=== PATIENT | male | born 1975 ===

== ENCOUNTER 2018-12-06 17:53 | Emergency (ER) | payer OTHER ==
[~2018-12-06] VITALS: Ht 177.8 cm; Wt 102.0 kg
[2018-12-06] MEDS ORDERED: epiNEPHrine 1 mg/ml inj IM STA (18:06)
[2018-12-06] MEDS ORDERED: methylPREDNISolone sod succ 125mg/2ml vial IV ONE (18:10)
[2018-12-06] MEDS ORDERED: diphenhydrAMINE 50 mg/ml inj IV ONE (18:10)
[2018-12-06] MEDS ORDERED: famotidine/PF 10 mg/ml inj IV ONE (18:10)
[2018-12-06 19:09] VITALS: BP 161/98
[2018-12-06] MEDS ORDERED: PRED20TA PO (19:11)
== END 2018-12-06 19:21 | disposition home or self-care (01) ==
LOC: ER 17:54
DX: R06.02 Shortness of breath (principal); T46.4X5A Adverse effect of angiotensin-converting-enzyme inhibitors, initial encounter; I10 Essential (primary) hypertension; Z79.899 Other long term (current) drug therapy; Y92.89 Other specified places as the place of occurrence of the external cause
CPT/HCPCS: 96372; 96374; 96375; 99283; J0171; J1200; J2930; J3490

== ENCOUNTER 2020-08-01 15:15 | Emergency (ER) | payer SELFPAY ==
[~2020-08-01] VITALS: Ht 180.3 cm; Wt 106.6 kg
--- NOTE | 2020-08-01 16:10 | NUR ---
PT BROUGHT BACK TO BED 5
--- NOTE | 2020-08-01 16:25 | NUR ---
PROVIDER ZEINAB CROWDER AT BEDSIDE WITH ULTRASOUND PERFORMING FAST EXAM
[2020-08-01] MEDS ORDERED: morphine 4 MG/ML inj SYRINge IV ONE (16:40)
--- NOTE | 2020-08-01 16:40 | NUR ---
REPORT FROM ZEINAB CROWDER, PTS FAST EXAM WAS NEGATIVE.
[2020-08-01 17:12] LABS: BASOPHILS % (AUTO) 0.1 % (0-1); EOSINOPHILS % (AUTO) 0.2 % (0-6); HEMATOCRIT 45.7 % (42.0-52.0); HEMOGLOBIN 15.7 g/dl (14.0-17.9); LYMPHOCYTES # (AUTO) 1.1 X10'3 (1.1-4.8); LYMPHOCYTES % (AUTO) 9.1 % (21-51); MEAN CORPUSCULAR HEMOGLOBIN 31.1 PG (27.0-31.0); MEAN CORPUSCULAR HGB CONC 34.2 g/dL (33.0-36.5); MEAN PLATELET VOLUME 8.3 FL (7.4-10.4); MONOCYTES # (AUTO) 0.9 X10'3 (0-0.9); NEUTROPHILS # (AUTO) 10.5 X10'3 (1.8-7.7); NEUTROPHILS % (AUTO) 83.6 % (42-75); PLATELET COUNT 224 X10'3 (140-440); RED BLOOD COUNT 5.03 X10'6 (4.70-6.10); RED CELL DISTRIBUTION WIDTH 12.7 % (11.5-14.5); WHITE BLOOD COUNT 12.6 X10'3 (4.5-11.0)
[2020-08-01 17:20] LABS: PARTIAL THROMBOPLASTIN TIME 25 SECONDS (22-32)
[2020-08-01 17:26] LABS: ALANINE AMINOTRANSFERASE 30 U/L (12-78); ALBUMIN 4.2 G/DL (3.4-5.0); ALBUMIN/GLOBULIN RATIO 1.2 (1.1-1.5); ALKALINE PHOSPHATASE 62 IU/L (46-116); ANION GAP 10 (8-16); ASPARTATE AMINO TRANSFERASE 23 U/L (10-37); BILIRUBIN,TOTAL 0.3 MG/DL (0.1-1.0); BLOOD UREA NITROGEN 17 MG/DL (7-18); BUN/CREATININE RATIO 17.9 (5.4-32.0); CALCIUM 9.5 MG/DL (8.5-10.1); CHLORIDE 103 MMOL/L (99-107); CREATININE 0.95 MG/DL (0.60-1.10); GLUCOSE 92 MG/DL (70-104); POTASSIUM 3.8 MMOL/L (3.5-5.1); SODIUM 139 MMOL/L (135-145); TOTAL PROTEIN 7.6 G/DL (6.4-8.2); eGFR 86 ML/MIN
[2020-08-01 17:34] VITALS: BP 137/97
== END 2020-08-01 17:44 | disposition short-term general hospital (02) ==
LOC: ER 15:16
DX: S06.5X0A Traumatic subdural hemorrhage without loss of consciousness, initial encounter (principal); S02.82XA Fracture of other specified skull and facial bones, left side, initial encounter for closed fracture; S02.85XA Fracture of orbit, unspecified, initial encounter for closed fracture; I10 Essential (primary) hypertension; Z72.89 Other problems related to lifestyle; V23.4XXA Motorcycle driver injured in collision with car, pick-up truck or van in traffic accident, initial encounter; Y93.89 Activity, other specified; Y92.488 Other paved roadways as the place of occurrence of the external cause; Y99.8 Other external cause status
CPT/HCPCS: 36415; 70450; 70486; 72125; 80053; 85025; 85610; 85730; 99291